=== PATIENT | male | born 1955 | race Caucasian/White ===

== ENCOUNTER 2022-12-25 08:13 | Day surgery (SDC) | payer OTHER ==
[2022-12-23 14:33] LABS: Absolute Lymphocytes (CBC) 1.5 K/uL (0.7-4.9); Hematocrit 44.8 % (39.6-49.0); Lymphocytes % 22.6 % (15.3-44.8); MCV 90.6 fL (80-100); MPV 7.3 fL (7.6-11.3); Platelets 305 thou/uL (152-406); RBC Red Blood Cell Count 4.94 M/uL (4.33-5.43)
[2022-12-23 14:44] LABS: Protime INR 0.9
[2022-12-23 14:52] LABS: Potassium 4.6 mEq/L (3.5-5.1)
[2022-12-25] MEDS ORDERED: NA CHLORIDE 0.9% 1,000 ML ONE (08:31)
[2022-12-25] MEDS ORDERED: propofoL 200 MG/20 ML VIAL IV ONE (09:01)
[2022-12-25] MEDS: CEFAZOLIN SODIUM 2 GM/VIAL ONE ×2 (09:15→10:10)
[2022-12-25] MEDS: BUPIVACAINE 0.25% PF 30 ML VIAL ONE ×2 (09:16→10:21)
[2022-12-25] MEDS ORDERED: dexAMETHasone 4 MG/ML VIAL ONE (10:27)
[2022-12-25] MEDS ORDERED: ONDANSETRON 4 MG/2 ML VIAL ONE (10:27)
[2022-12-25] MEDS ORDERED: FENTANYL CITR 100 MCG/2 ML ONE (10:36)
[2022-12-25] MEDS ORDERED: GLYCOPYRROLATE 0.2 MG/ML SYR ONE (10:37)
--- NOTE | 2022-12-25 10:47 | P.OP ---
Preoperative diagnosis: Umbilical Hernia Postoperative diagnosis: Umbilical Hernia Primary procedure: Laparoscopic Umbilical Hernia Repair with mesh Anesthesia: GETA + Local Estimated blood loss: <2cc Specimen: None Findings: ~2cm umbilical hernia Complications: None Implants: Bard Ventralite ST mesh 11.4cm Round, Sorbafix x 45 tacks Transferred to: Recovery Room Condition: Good
[2022-12-25] MEDS: HYDROMORPHONE HCL 1 MG/ML INJ ONE ×4 (10:57→11:23)
[2022-12-25] MEDS: FENTANYL CITR 100 MCG/2 ML ONE ×4 (11:29→11:50)
--- NOTE | 2022-12-25 12:01 | OP ---
Date of Procedure: 12/25/2022 Surgeon: Jakob Ospina MD, Preoperative Diagnosis: Umbilical hernia. Postoperative Diagnosis: Umbilical hernia. Procedure Performed: A laparoscopic umbilical hernia repair with mesh. Anesthesia: General endotracheal plus local with 0.25% Marcaine . Specimen: None. Findings: Approximately 2 cm umbilical hernia reducible. Complications: None. Implants: Bard Ventralight ST mesh with Echo Positioning System, 11.4 cm Bard mesh utilized round or ientation, SorbaFix absorbable fixation tacks, x45 tacks. Disposition: The patient was transferred to the recovery room in good condition. Procedure In Detail: After informed consent was obtained, patient was brought to the operating room, prepped and draped in the usual sterile fashion. After adequate anesthesia was achieved, an area of the left upper quadrant was anesthetized with 0.25% Marcaine, sharply incised. A 5 mm 0-degree opti teressa trocar was introduced in the abdomen without any evidence of complication. Insufflation was take n to 15 mmHg at this time. There was no injury to vital structure upon entry into the abdomen. Jose Francisco tional trocar was placed in the left mid abdomen. This was similarly anesthetized, sharply incised. A 12 mm trocar was placed under direct vision without evidence of complication. At this point, the LigaSure device was used to reduce preperitoneal adipose tissue from the umbilical hernia and swept b ack all preperitoneal adipose tissue to allow an adequate landing zone for the mesh to be in good jonel osition to the abdominal wall. After this was performed, no additional was required. At this point, I brought in an Endo Stitch with 0 V-Loc suture and closed the hernia defect imbricating the hernia sac in a running orientation with good approximation tissues. At this point, I brought in and deployed the 11.[address] mesh with Echo Positioning System in the supraumbilical position down to subcutaneous tissues. It was anesthetized and then the mesh after being properly p ositioned, was secured to the anterior abdominal wall using SorbaFix absorbable fixation tacks. The deployment system was found to be intact on the back table after being removed and I placed a double crown orientation of a total of 45 tacks to the anterior abdominal wall of SorbaFix absorbable fixati on tacks. After this was completed, the mesh was in good apposition to the abdominal wall without an y hemostatic measures required. I then closed the 12 mm trocar site using a Calixto-Whit suture p asser with 0 Vicryl in and interrupted fashion with good approximation of tissues. The abdomen was t hen desufflated under direct vision without evidence of complication. The remaining trocars were rem boom. All skin incisions were then copiously irrigated and closed with a 4-0 Monocryl in a running f ashion. Dermabond was placed over top. The patient tolerated the procedure well without evidence of complication and was transferred to PACU in good condition. All counts were correct at the end of t he case. SHAHEED/MARISEL Voice ID: [id number] Report ID: [id number]
[2022-12-25 12:46] VITALS: BP 129/85; TEMP 98.4; O2SAT 92
[2022-12-25] MEDS ORDERED: HYDROCODONE/APAP 10/325 TAB ONE (12:47)
--- NOTE | 2022-12-26 14:20 | EKG ---
Test Date: 2022-12-23 Test Time: 15:19:57 [employer]ite [employer] Machine: JOHN MEASUREMENT RESULTS: Intervals: Rate: 69 ME: 162 QRSD: 76 QT: 396 QTc: 424 Bennett: P: 21 ME: 162 QRS: 48 T: 60 INTERPRETIVE STATEMENTS: Normal sinus rhythm Anteroseptal infarct, age undetermined Abnormal ECG No previous ECG available for comparison Electronically Signed On 12-26-22 14:10:18 [employer] by Nima Collins
== END 2022-12-25 12:57 | disposition home or self-care (01) ==
LOC: OR 08:13
PROVIDERS: ATTEND Surgery
PROC: 0WUF4JZ Supplement Abdominal Wall with Synthetic Substitute, Percutaneous Endoscopic Approach (ICD-10-PCS; principal; 2022-12-25 10:30)
DX: K42.9 Umbilical hernia without obstruction or gangrene (principal)
CPT/HCPCS: 93005; 85025; 80048; 36415; 85610; 82947 ×2; 85730; 49591; J2704; J1100; J3010 ×2; J1170 ×2; J2405; J7030

== ENCOUNTER 2022-12-26 02:39 | Emergency (ER) | payer OTHER ==
--- OUTSIDE RECORDS SUMMARY | 2022-12-26 02:44 | XMS REPORT | Continuity of Care Document ---
:1955 Author Organization [facility] t Address [address] [facility] [address] [place] [address] Care Team Providers Name Role Phone Braulio MOHAN, Jorden Payne Primary Care Physician DR ENMANUEL CULLEN Attending Clinician Unavailable MACK TROTTER Attending Clinician Unavailable DR ENMANUEL CULLEN Admitting Clinician Unavailable MACK TROTTER Admitting Clinician Unavailable Problems Condition Condition Condition Status Onset Resolution Last Treating Co mments Source Name Details Category Date Date Treatment Clinician Date DM2 DM2 Disease Recurre 2016-[address] [facility] (diabetes (diabetes nce 03-06 [facility] mellitus, mellitus, 00:00: Medi teressa type 2) type 2) 00 Center HTN HTN Disease Active 2016-[address] [facility] [address] (hypertens (hypertens -20 Kathie kes ion) ion) 00:00: Medical 00 Center Hyperlipid Hyperlipid Disease Active 2016-[address] [facility] 03[facility]06 [facility] STEMI (ST STEMI (ST Disease Recurre 2016-[address] elevation elevation nce 03-06 [facility] myocardial myocardial 00:00: Me dical infarction infarction 00 Ce nter ) ) Acute Acute Disease Recurre 2016-[address] [facility] coronary coronary nce 03-04 [facility] syndrome syndrome 00:00: Medica l 00 Center Allergies, Adverse Reactions, Alerts Allergy Allergy Status Severity Reaction(s) Onset Inactive Treating Comm ents Source Name Type Date Date Clinician NO KNOWN [facility] Family Member Diagnosis Comments Start Date Stop Date Source Natural brother [facility] Natural father CABG/Stent [facility] Natural mother COPD [facility] Natural sister Cancer [facility] Social History Social Habit Start Date Stop Date Quantity Comments Source Sexual orientation [facility] History of Social 2018-10-08 2018-10-[address] function 00:00:00 00:00:00 Hospital Alcohol intake 2018-04-13 2018-04-13 Current drinker [facility] 00:00:00 00:00:00 of alcohol Hospital (finding) Alcohol Comment 2018-04-06 2018-04-06 [facility] Tobacco use and 2018-04-06 2018-04-06 Former smokeless [facility] exposure 00:00:00 00:00:00 tobacco user Hospital History of tobacco 1999-04-06 Chews Tobacco [facility] use 00:00:00 Hospital Sex Assigned At [birth year] [facility] 00:00:00 [facility]:00 [facility] Smoking Status Start Date Stop Date Source Never smoked tobacco [facility] ospital Light tobacco smoker 2017-01-02 00:00:00 [facility] Medications Ordered Filled Start Stop Current Ordering Indication Dosage Frequency Signature Comments Components Source Medication Medication Date Date Medication? Clinician (SIG) Name Name metFORMIN Yes 1000mg Q.5D Take 1,000 [facility] (GLUCOPHAGE 2-[address] ) 1,000 mg 15:05: mouth 2 Hosp aditya tablet 49 (two) l times a day with meals. carvedilol Yes 6.25mg Q.5D Take 6.25 [facility] (COREG) 2-[address] 6.25 MG 15:05: mouth 2 Hospita tablet 49 (two) l times a day with meals. empaglifloz Yes 25mg QD Take 25 mg [facility] in 2-[address] (JARDIANCE) 15:05: daily. Hosp aditya 25 mg 49 l tablet lisinopril Yes 10mg QD Take 10 mg M [facility] (PRINIVIL,Z -[address] ESTRIL) 10 15:05: daily. Hospi ta mg tablet 49 l gabapentin Yes 300mg Q.[id number] Take 300 [facility] (NEURONTIN) 2-22 [id number] mg by s t 300 mg 15:05: 3D mouth 3 Hospita capsule 49 (three) l times a day. azelastine- 2019 Yes 1{spray Q.5D 1 spray by [facility] fluticasone 2-22 } Each Nare st (DYMISTA) 15:05: route 2 Hospi ta 137-50 49 (two) l mcg/spray times a spray,non-a day. erosol nitroglycer Yes .4mg Place 0.4 M [facility] in 2-[address] (NITROSTAT) 15:05: the tongue Hospita 0.4 MG SL 49 every 5 l tablet (five) minutes as needed for chest pain. aspirin Yes 81mg QD Take 81 mg Meth dana (ECOTRIN) 2-[address] 81 MG 15:05: daily. Hospita enteric 49 l coated tablet omega-3 Yes 1g Q.5D Take 1 g [facility] acid ethyl 2-[address] esters 15:05: (two) Hospita (LOVAZA) 1 49 times a l gram day. capsule calcium Yes 1{tbl} Q.5D Take 1 [facility] carbonate-v 2-[address] itamin D3 15:05: mouth 2 Hospi ta 500 mg-200 49 (two) l unit per times a tablet day with meals. cyanocobala Yes 250ug QD Take 250 M ethodi min 2-[address] (VITAMIN 15:05: mouth Hospita B-12) 250 49 daily. l MCG tablet metFORMIN 2016-02 Yes 1000mg Take 1,[address] (GLUCOPHAGE 1-21 mg by [facility] ) 1000 MG 07:27: mouth 2 Medic al tablet 54 (two) Center times daily with breakfast and dinner. pioglitazon 2016-02 Yes 30mg QD Take [address] e (ACTOS) -21 by mouth [facility] 30 MG 07:27: daily. Medical tablet 54 Center atorvastati 2016-02 Yes 20mg QD Take [address] n (LIPITOR) -21 by mouth Luke s 20 MG 07:27: daily. Medical tablet 54 Center ezetimibe 2016-02 Yes 10mg QD Take [address] (ZETIA) 10 -21 by mouth [facility] mg tablet 07:27: daily. Medica l 54 Center aspirin 81 2016-02 Yes 81mg QD Take [address] MG EC -21 by mouth [facility] tablet 07:27: daily. Medical 54 Center omega-3 2016-02 Yes 2g Q.5D Take [address] acid ethyl -21 by mouth 2 Yon es esters 07:27: (two) Medical (LOVAZA) 1 54 times Center gram daily. capsule calcium 2016-02 Yes 1{tbl} Q.5D Take [address] carbonate-v -21 tablet by Yon es itamin D2 07:27: mouth 2 Medic al 500 54 (two) Center mg(1,250mg) times -200 unit daily. tablet nitroglycer 2016-[address] in -20 tablet [facility] (NITROSTAT) 00:00: (0.4 mg Med ical 0.4 MG SL 00 total) Center tablet under the tongue every 5 (five) minutes as needed for Chest pain. Procedures This patient has no known procedures. Plan of Care Planned Activity Planned Date Details Comments Source Future Scheduled 2022-12-09 [facility] Test 14:46:05 malignant neoplasm of colon (procedure) [code = 162804351] Future Scheduled 2022-12-09 [facility] Test 14:46:05 malignant neoplasm of colon (procedure) [code = 622510482] Future Scheduled 2022-12-09 [facility] Test 14:46:05 malignant neoplasm of colon (procedure) [code = 680174576] Future Scheduled 2022-12-09 COVID-19 VACCINE (#1) [facility] Test 14:46:05 [code = COVID-19 VACCINE (#1)] Future Scheduled 2022-12-09 [facility] Test 14:46:05 malignant neoplasm of colon (procedure) [code = 415407521] Future Scheduled 2022-12-09 [facility] Test 14:46:05 malignant neoplasm of colon (procedure) [code = 686766286] Future Scheduled 2022-12-09 SHINGLES VACCINES (1 [facility] Test 14:46:05 of 2) [code = SHINGLES VACCINES (1 of 2)] Future Scheduled 2022-12-09 65+ P[facility]UMOCOCCAL [facility] Test 14:46:05 VACCINE (1 - PCV) [code = 65+ PNEUMOCOCCAL VACCINE (1 - PCV)] Future Scheduled 2022-12-09 INFLUENZA VACCINE (#1) [facility] Test 14:46:05 [code = INFLUENZA VACCINE (#1)] Encounters Start End Encounter Admission Attending Care Care Encounter Source Date/Time Date/Time Type Type Clinicians Facility Department ID 2018-07-15 2018-07-15 Outpatient C ALYSE [facility] [id number] [facility] 09:34:00 11:55:00 [facility] [place], operated by [facility] Results Test Description Test Time Test Comments Results Result Comments Source GLUCOMETER GLUCOSE- LAB USE ONLY 2018-07-15 09:51:00 Test Item Value Reference Range Interpretation Comme nts GLUCOMETER (test code = GMG) 119 mg/dL 70-100 H Meter ID: [id number]: [id number] KIM ELKINSEDO POCT-GLUCOSE [id number] 12:15:00 Test Item Value Reference Range Interpretation Comments POC-GLUCOSE METER 155 mg/dL 70-110 H TESTED AT [facility] [facility] ([facility] 1538) [id number] 06:37:00 Test Item Value Reference Range Interpretation Comments MAGNESIUM (BEAKER) (test code = 1.9 mg/dL 1.6-2.6 627) BASIC METABOLIC [id number] 06:37:00 Test Item Value Reference Range Interpretation Comments SODIUM (BEAKER) 137 meq/L 136-145 (test code = 381) POTASSIUM (BEAKER) 4.1 meq/L 3.5-5.1 (test code = 379) CHLORIDE (BEAKER) 106 meq/L 98-107 (test code = 382) CO2 (BEAKER) (test 23 meq/L 22-29 code = 355) BLOOD UREA NITROGEN 12 mg/dL 7-21 (BEAKER) (test code = 354) CREATININE (BEAKER) 0.80 mg/dL 0.57-1.25 (test code = 358) GLUCOSE RANDOM 146 mg/dL 70-105 H (BEAKER) (test code = 652) CALCIUM (BEAKER) 8.7 mg/dL 8.4-10.2 (test code = 697) EGFR (BEAKER) (test 98 mL/min/1.73 ESTIMA REINALDO GFR IS code = 1092) sq m NOT ACCURATE CREATININE CLEARANCE IN PREDICTING GLOMERULAR FILTRATION RATE . ESTIMATED GFR I S NOT APPLICABLE FOR DIALYSIS PATIEN TS. CBC (HEMOGRAM ONLY)2017-01-04 06:05:00 Test Item Value Reference Range Interpretation Comments WHITE BLOOD CELL COUNT (BEAKER) 7.1 K/ L 3.5-10.5 (test code = 775) RED BLOOD CELL COUNT (BEAKER) 4.75 M/ L 4.63-6.08 (test code = 761) HEMOGLOBIN (BEAKER) (test code = 14.7 GM/DL 13.7-17.5 410) HEMATOCRIT (BEAKER) (test code = 43.7 % 40.1-51.0 411) MEAN CORPUSCULAR VOLUME (BEAKER) 92.0 fL 79.0-92.2 (test code = 753) MEAN CORPUSCULAR HEMOGLOBIN 30.9 pg 25.7-32.2 (BEAKER) (test code = 751) MEAN CORPUSCULAR HEMOGLOBIN CONC 33.6 GM/DL 32.3-36.5 (BEAKER) (test code = 752) RED CELL DISTRIBUTION WIDTH 11.8 % 11.6-14.4 (BEAKER) (test code = 412) PLATELET COUNT (BEAKER) (test 222 K/CU MM 150-450 code = 756) MEAN PLATELET VOLUME (BEAKER) 9.1 fL 9.4-12.4 L (test code = 754) NUCLEATED RED BLOOD CELLS 0 /100 WBC 0-0 (BEAKER) (test code = 413) POCT-GLUCOSE [id number] 21:29:00 Test Item Value Reference Range Interpretation Comments POC-GLUCOSE METER 137 mg/dL 70-110 H TESTED AT [place] [address] ([facility]) (test code = AM[place]JIT [place] 1538) [address] POCT-GLUCOSE [id number] 17:54:00 Test Item Value Reference Range Interpretation Comments POC-GLUCOSE METER 247 mg/dL 70-110 H TESTED AT [facility] [address] ([facility]) (test code = [place] 1538) [id number] HEMOGLOBIN [id number] 16:56:00 Test Item Value Reference Range Interpretation Comments HEMOGLOBIN A1C (BEAKER) (test code = 6.9 % 4.3-6.1 H 368) POCT-GLUCOSE [id number] 11:22:00 Test Item Value Reference Range Interpretation Comments POC-GLUCOSE METER 117 mg/dL 70-110 H TESTED AT [facility] [address] (BEAKER) (test code = AM[place] 1538) [address] POCT-GLUCOSE [id number] 07:43:00 Test Item Value Reference Range Interpretation Comments POC-GLUCOSE METER 127 mg/dL 70-110 H TESTED AT [facility] [address] (BEAKER) (test code = AM[facility]IT [place] [facility] 1538) [address] BASIC METABOLIC [id number] 07:39:00 Test Item Value Reference Range Interpretation Comments SODIUM (BEAKER) 137 meq/L 136-145 (test code = 381) POTASSIUM (BEAKER) 3.9 meq/L 3.5-5.1 (test code = 379) CHLORIDE (BEAKER) 104 meq/L 98-107 (test code = 382) CO2 (BEAKER) (test 26 meq/L 22-29 code = 355) BLOOD UREA NITROGEN 11 mg/dL 7-21 (BEAKER) (test code = 354) CREATININE (BEAKER) 0.80 mg/dL 0.57-1.25 (test code = 358) GLUCOSE RANDOM 148 mg/dL 70-105 H (BEAKER) (test code = 652) CALCIUM (BEAKER) 8.8 mg/dL 8.4-10.2 (test code = 697) EGFR (BEAKER) (test mL/min/1.73 INSUFFIC IENT CLINICAL code = 1092) sq m DATA TO CALCULA TE ESTIMATED GFR. [id number] 07:34:00 Test Item Value Reference Range Interpretation Comments MAGNESIUM (BEAKER) (test code = 2.0 mg/dL 1.6-2.6 627) PROTHROMBIN [id number] 06:59:00 Test Item Value Reference Range Interpretation Comments PROTIME (BEAKER) (test code = 14.0 seconds 11.7-14.7 759) INR (BEAKER) (test code = 370) 1.1 <=5.9 RECOMMENDED COUMADIN/WARFARIN INR THERAPY RANGESSTANDARD DOSE: 2.0 - 3.0 Includes: PROPHYLAXIS for venous thrombosis, systemic embolization; TREATMENT for venous thrombosis and/or pulmonary embolus.HIGH RISK: Target INR is 2.5-3.5 for patients with mechanical heart valves.CBC (HEMOGRAM ONLY)2017-01-03 06:45:00 Test Item Value Reference Range Interpretation Comments WHITE BLOOD CELL COUNT (BEAKER) 6.1 K/ L 3.5-10.5 (test code = 775) RED BLOOD CELL COUNT (BEAKER) 4.17 M/ L 4.63-6.08 L (test code = 761) HEMOGLOBIN (BEAKER) (test code = 12.9 GM/DL 13.7-17.5 L 410) HEMATOCRIT (BEAKER) (test code = 38.7 % 40.1-51.0 L 411) MEAN CORPUSCULAR VOLUME (BEAKER) 92.8 fL 79.0-92.2 H (test code = 753) MEAN CORPUSCULAR HEMOGLOBIN 30.9 pg 25.7-32.2 (BEAKER) (test code = 751) MEAN CORPUSCULAR HEMOGLOBIN CONC 33.3 GM/DL 32.3-36.5 (BEAKER) (test code = 752) RED CELL DISTRIBUTION WIDTH 11.7 % 11.6-14.4 (BEAKER) (test code = 412) PLATELET COUNT (BEAKER) (test 205 K/CU MM 150-450 code = 756) MEAN PLATELET VOLUME (BEAKER) 9.0 fL 9.4-12.4 L (test code = 754) NUCLEATED RED BLOOD CELLS 0 /100 WBC 0-0 (BEAKER) (test code = 413) RAD, CHEST, 1 VIEW, NON [id number] 18:22:00Reason for exam:->chest pain FINAL REPORT Chest, 1 view Clinical history: chest pain Comparison: None Discussion: There is no pneumothorax, pulmonary edema or significant pleural effusion. There is left basilar subsegmental atelectasis without definite focal consolidation. The cardiac silhouette is magnified by portable technique with tortuous appearance of the thoracic aorta. The osseous structures demonstrate degenerative change. Signed: Artie Fallon Verified Date/Time: 01/02/2017 18:22:22 Reading Location: [facility] C0[facility] Ortho Consult Reading Room -GLUCOSE [id number] 18:00:00 Test Item Value Reference Range Interpretation Comments POC-GLUCOSE METER 116 mg/dL 70-110 H TESTED AT [facility] [address] ([facility]) (test code = AM[place] 1538) [address] LIPID [id number] 17:58:00 Test Item Value Reference Range Interpretation Comments TRIGLYCERIDES ([facility]) (test code = 87 mg/dL 540) CHOLESTEROL ([facility]) (test code = 119 mg/dL 631) HDL CHOLESTEROL ([facility]) (test code 44 mg/dL = 976) LDL CHOLESTEROL CALCULATED ([facility]) 58 mg/dL (test code = 633) Triglyceride Reference Range: Low Risk <150 Borderline 150-199 High Risk 200-499 Very High Risk >=500Cholesterol Reference Range: Low Risk <200 Borderline 200-239 High Risk >240HDL Cholesterol Reference Range: Low Risk >=60 High Risk <40LDL Cholesterol Reference Range: Optimal <100 Near Optimal 100-129 Borderline 130-159 High 160-189 Very High >=[id number] 17:36:00 Test Item Value Reference Range Interpretation Comments PARTIAL THROMBOPLASTIN TIME 90.7 seconds 22.5-36.0 H ([facility]) (test code = 760) 4 hours after the start of continuous infusion and 4 hours after any rate change PROTHROMBIN [id number] 16:08:00 Test Item Value Reference Range Interpretation Comments PROTIME ([facility]) (test code = 40.4 seconds 11.7-14.7 H 759) INR ([facility]) (test code = 370) 4.1 <=5.9 RECOMMENDED COUMADIN/WARFARIN INR THERAPY RANGESSTANDARD DOSE: 2.0 - 3.0 Includes: PROPHYLAXIS for venous thrombosis, systemic embolization; TREATMENT for venous thrombosis and/or pulmonary embolus.HIGH RISK: Target INR is 2.5-3.5 for patients with mechanical heart valves.CBC (HEMOGRAM ONLY)2017-01-02 15:58:00 Test Item Value Reference Range Interpretation Comments WHITE BLOOD CELL COUNT ([facility]) 9.1 K/ L 3.5-10.5 (test code = 775) RED BLOOD CELL COUNT (AKER) 4.58 M/ L 4.63-6.08 L (test code = 761) HEMOGLOBIN (BEAKER) (test code = 14.3 GM/DL 13.7-17.5 410) HEMATOCRIT (BEAKER) (test code = 42.0 % 40.1-51.0 411) MEAN CORPUSCULAR VOLUME (BEAKER) 91.7 fL 79.0-92.2 (test code = 753) MEAN CORPUSCULAR HEMOGLOBIN 31.2 pg 25.7-32.2 (BEAKER) (test code = 751) MEAN CORPUSCULAR HEMOGLOBIN CONC 34.0 GM/DL 32.3-36.5 (BEAKER) (test code = 752) RED CELL DISTRIBUTION WIDTH 11.6 % 11.6-14.4 (BEAKER) (test code = 412) PLATELET COUNT (BEAKER) (test 221 K/CU MM 150-450 code = 756) MEAN PLATELET VOLUME (BEAKER) 9.9 fL 9.4-12.4 (test code = 754) NUCLEATED RED BLOOD CELLS 0 /100 WBC 0-0 (BEAKER) (test code = 413) TROPONIN [id number] 15:52:00 Test Item Value Reference Range Interpretation Comments TROPONIN I (BEAKER) (test code = 397) > ng/mL 0.00-0.03 HH Troponin I (TnI) levels must be interpreted in the context of the presenting symptoms and the clinical findings. Elevated TnI levels indicate myocardial damage, but are not specific for ischemic heart disease. Elevated TnI levels are seen in patients with other cardiac conditions (including myocarditis and congestive heart failure), and slight TnI elevations occur in patients with other conditions, including sepsis, renal failure, acidosis, acute neurological disease, and persistent tachyarrhythmia.CREATINE KINASE (CK), TOTAL AND MB 2017-01-02 15:44:00 Test Item Value Reference Range Interpretation Comments CREATINE KINASE TOTAL (BEAKER) 4373 U/L 29-200 H (test code = 380) CREATINE KINASE-MB (BEAKER) (test 184.6 ng/mL 0.0-6.6 H code = 750) CREATINE KINASE-MB INDEX (BEAKER) 4.2 % (test code = 395) CK-MB Reference Range:<6.7 Normal6.7-10.0 Borderline>10.0 Abnormal COMPREHENSIVE METABOLIC [id number] 15:26:00 Test Item Value Reference Range Interpretation Comments TOTAL PROTEIN 6.6 gm/dL 6.0-8.3 (BEAKER) (test code = 770) ALBUMIN (BEAKER) 4.2 g/dL 3.5-5.0 (test code = 1145) ALKALINE PHOSPHATASE 66 U/L 40-150 (BEAKER) (test code = 346) BILIRUBIN TOTAL 0.8 mg/dL 0.2-1.2 (BEAKER) (test code = 377) SODIUM (BEAKER) 136 meq/L 136-145 (test code = 381) POTASSIUM (BEAKER) 4.2 meq/L 3.5-5.1 (test code = 379) CHLORIDE (BEAKER) 105 meq/L 98-107 (test code = 382) CO2 (BEAKER) (test 22 meq/L 22-29 code = 355) BLOOD UREA NITROGEN 15 mg/dL 7-21 (BEAKER) (test code = 354) CREATININE (BEAKER) 0.82 mg/dL 0.57-1.25 (test code = 358) GLUCOSE RANDOM 157 mg/dL 70-105 H (BEAKER) (test code = 652) CALCIUM (BEAKER) 9.1 mg/dL 8.4-10.2 (test code = 697) AST (SGOT) (BEAKER) 341 U/L 5-34 H (test code = 353) ALT (SGPT) (BEAKER) 78 U/L 6-55 H (test code = 347) EGFR (BEAKER) (test mL/min/1.73 INSUFFIC IENT code = 1092) sq m CLINICAL DATA T O CALCULATE ESTIM ATED GFR. B-TYPE NATRIURETIC FACTOR (BNP)2017-01-02 15:25:00 Test Item Value Reference Range Interpretation Comments B-TYPE NATRIURETIC PEPTIDE (BEAKER) 35 pg/mL 0-100 (test code = 700) [id number] 15:18:00 Test Item Value Reference Range Interpretation Comments MAGNESIUM (BEAKER) (test code = 1.7 mg/dL 1.6-2.6 627) [id number] 15:10:00 Test Item Value Reference Range Interpretation Comments PROTIME (BEAKER) (test code = 44.2 seconds 11.7-14.7 H 759) INR (BEAKER) (test code = 370) 4.6 <=5.9 PARTIAL THROMBOPLASTIN TIME 99.8 seconds 22.5-36.0 H (BEAKER) (test code = 760) RECOMMENDED COUMADIN/WARFARIN INR THERAPY RANGESSTANDARD DOSE: 2.0 - 3.0 Includes: PROPHYLAXIS for venous thrombosis, systemic embolization; TREATMENT for venous thrombosis and/or pulmonary embolus.HIGH RISK: Target INR is 2.5-3.5 for patients with mechanical heart valves.CBC W/PLT COUNT & AUTO [id number] 15:00:00 Test Item Value Reference Range Interpretation Comments WHITE BLOOD CELL COUNT (BEAKER) 10.0 K/ L 3.5-10.5 (test code = 775) RED BLOOD CELL COUNT (BEAKER) 4.55 M/ L 4.63-6.08 L (test code = 761) HEMOGLOBIN (BEAKER) (test code = 14.0 GM/DL 13.7-17.5 410) HEMATOCRIT (BEAKER) (test code = 41.0 % 40.1-51.0 411) MEAN CORPUSCULAR VOLUME (BEAKER) 90.1 fL 79.0-92.2 (test code = 753) MEAN CORPUSCULAR HEMOGLOBIN 30.8 pg 25.7-32.2 (BEAKER) (test code = 751) MEAN CORPUSCULAR HEMOGLOBIN CONC 34.1 GM/DL 32.3-36.5 (BEAKER) (test code = 752) RED CELL DISTRIBUTION WIDTH 11.6 % 11.6-14.4 (BEAKER) (test code = 412) PLATELET COUNT (BEAKER) (test 219 K/CU MM 150-450 code = 756) MEAN PLATELET VOLUME (BEAKER) 9.2 fL 9.4-12.4 L (test code = 754) NUCLEATED RED BLOOD CELLS 0 /100 WBC 0-0 (BEAKER) (test code = 413) NEUTROPHILS RELATIVE PERCENT 87 % (BEAKER) (test code = 429) LYMPHOCYTES RELATIVE PERCENT 9 % (BEAKER) (test code = 430) MONOCYTES RELATIVE PERCENT 4 % (BEAKER) (test code = 431) EOSINOPHILS RELATIVE PERCENT 0 % (BEAKER) (test code = 432) BASOPHILS RELATIVE PERCENT 0 % (BEAKER) (test code = 437) NEUTROPHILS ABSOLUTE COUNT 8.67 K/ L 1.78-5.38 H ([facility]) (test code = 670) LYMPHOCYTES ABSOLUTE COUNT 0.85 K/ L 1.32-3.57 L (AKER) (test code = 414) MONOCYTES ABSOLUTE COUNT (AKER) 0.38 K/ L 0.30-0.82 (test code = 415) EOSINOPHILS ABSOLUTE COUNT 0.03 K/ L 0.04-0.54 L (AKER) (test code = 416) BASOPHILS ABSOLUTE COUNT (AKER) 0.02 K/ L 0.01-0.08 (test code = 417) IMMATURE GRANULOCYTES-RELATIVE 0 % 0-1 PERCENT ([facility]) (test code = 2801) [id number] 13:46:00 Test Item Value Reference Range Interpretation Comments ACTIVATED CLOTTING TIME 422 sec TEST ED AT [facility] [address] ([facility]) (test code = [facility] [place] [facility]) [address]
[2022-12-26 04:25] LABS: Absolute Lymphocytes (CBC) 1.1 K/uL (0.7-4.9); Hematocrit 46.1 % (39.6-49.0); Lymphocytes % 10.7 % (15.3-44.8); MCV 91.6 fL (80-100); MPV 7.2 fL (7.6-11.3); Platelets 329 thou/uL (152-406); RBC Red Blood Cell Count 5.03 M/uL (4.33-5.43)
[2022-12-26] MEDS ORDERED: ONDANSETRON 4 MG/2 ML VIAL ONE (04:35)
[2022-12-26] MEDS ORDERED: NA CHLORIDE 0.9% 1,000 ML ONE (04:36)
[2022-12-26 04:42] LABS: Bilirubin Total 0.8 mg/dL (0.2-1.0); Potassium 4.1 mEq/L (3.5-5.1); Protein, Total 7.7 g/dL (6.4-8.2)
[2022-12-26] MEDS ORDERED: PANTOPRAZOLE 40 MG INJ ONE (05:42)
--- NOTE | 2022-12-26 07:01 | EDPHYS ---
Physician Documentation [facility] Name: Min Hernandez Age: 67 yrs Sex: Male : 1955 Arrival Date: 12/26/2022 Time: 02:39 Bed 13 Private MD: ED Physician Beryl Esteves Historical: - Allergies: 12/26 03:57 No Known Allergies; ha1 - PMHx: 03:57 Diabetes mellitus; Hypertensive disorder; Myocardial infarction; ha1 - Immunization history:: Adult Immunizations not up to date. - Social history:: Smoking status: Patient/guardian denies using tobacco, the patient reports quitting approximately 1 years ago. Vital Signs: 03:27 BP 169 / 85; Pulse 84; Resp 19 S; Temp 98(O); Pulse Ox 94% on R/A; Weight 100.7 kg; ha1 Height 6 ft. 0 in. ; 04:30 BP 145 / 77; Pulse 75; Resp 18 S; Pulse Ox 95% on R/A; ha1 05:30 BP 148 / 80; Pulse 81; Resp 17 S; Pulse Ox 96% on R/A; ha1 06:33 BP 141 / 78; Pulse 80; Resp 17 S; Pulse Ox 93% on R/A; ha1 07:18 BP 154 / 77; Pulse 84; Resp 16; Pulse Ox 100% on R/A; mb9 03:27 Body Mass Index 30.11 (100.70 kg, 182.88 cm) ha1 MDM: 03:45 Patient medically screened. ci 06:56 ED course: Discussed case with patient's surgeon Dr. Jakob Haq, hemoglobin 15, states ci that patient may have had a minor bleed but nothing significant. Okay to discharge with Protonix and Zofran.. 12/26 03:47 Order name: CBC with Diff; Complete Time: 05:02 ci 12/26 03:47 Order name: CMP; Complete Time: 05:02 ci 12/26 03:47 Order name: Lipase; Complete Time: 05:02 ci 12/26 05:03 Order name: CT Abd/Pelvis - IV Contrast Only ci 12/26 03:47 Order name: IV Saline Lock; Complete Time: 04:26 ci 12/26 03:47 Order name: Labs collected and sent; Complete Time: 04:26 ci 11/11 03:47 Order name: NPO; Complete Time: 04:04 ci Administered Medications: 04:26 Drug: NS 0.9% IV 1000 ml IV at 1 bolus Per protocol; 1000 mL bolus Route: IV; Rate: 1 ha1 bolus; Site: right antecubital; 06:55 Follow up: Response: No adverse reaction; IV Status: Completed infusion; IV Intake: ha1 1000ml 04:26 Drug: Ondansetron IVP 4 mg IVP once; over 2 minutes Route: IVP; Site: right antecubital;ha1 04:55 Follow up: Response: No adverse reaction; Nausea is decreased ha1 05:20 Drug: Pantoprazole IVP 40 mg IVP once Route: IVP; Site: right antecubital; ha1 06:00 Follow up: Response: No adverse reaction ha1 Disposition Summary: 12/26/22 07:01 Discharge Ordered Condition: Stable ci Diagnosis - Nausea with vomiting, unspecified ci - Other postprocedural complications and disorders of digestive system ci Followup: ci - With: Private Physician - When: 1 - 2 days - Reason: Recheck today's complaints, Re-evaluation by your physician Discharge Instructions: - Discharge Summary Sheet ci - Nausea and Vomiting, Adult ci Forms: - Medication Reconciliation Form ci - Thank You Letter ci - Antibiotic Education ci - Prescription Opioid Use ci - Patient Portal Instructions ci - Leadership Thank You Letter ci Prescriptions: - Protonix 40 mg Oral Tablet - take 1 tablet ORAL route once daily; 30 tablet; Refills: 0, Product Selection ci Permitted - Zofran 4 mg Oral Tablet - take 1 tablet ORAL route every 12 hours As needed; 20 tablet; Refills: 0, ci Product Selection Permitted Signatures: Dispatcher [employer] Pamela Pinon RN RN ha1 Beryl Esteves ci Corrections: (The following items were deleted from the chart) 03:59 03:57 PSHx: Stented artery; ha1 ha1
--- NOTE | 2022-12-26 07:01 | ER ---
Nurse's Notes [facility] Name: Min Hernandez Age: 67 yrs Sex: Male : 1955 Arrival Date: 12/26/2022 Time: 02:39 Bed 13 Private MD: Diagnosis: Nausea with vomiting, unspecified;Other postprocedural complications and disorders of digestive system Presentation: 12/26 03:27 Chief complaint: Patient states: I had a hernia surgery yesterday morning, everything ha1 was ok until 5 PM yesterday I started to vomit dark brown secretions. I have vomited multiple times and feel nausea. 03:27 Coronavirus screen: Vaccine status: Patient reports being unvaccinated. Ebola Screen: ha1 No symptoms or risks identified at this time. Initial Sepsis Screen: Does the patient meet any 2 criteria? No. Patient's initial sepsis screen is negative. Does the patient have a suspected source of infection? No. Patient's initial sepsis screen is negative. Risk Assessment: Do you want to hurt yourself or someone else? Patient reports no desire to harm self or others. Onset of symptoms was December 26, 2022. 03:27 Method Of Arrival: Wheelchair ha1 03:27 Acuity: JACQIU 3 ha1 Triage Assessment: 03:27 General: Appears uncomfortable, Behavior is calm, cooperative. Pain: Complains of pain ha1 in abdomen Pain does not radiate. Pain currently is 7 out of 10 on a pain scale. Quality of pain is described as crampy, pressure. Neuro: Level of Consciousness is awake, alert, obeys commands, Oriented to person, place, time, situation. Respiratory: Airway is patent Respiratory effort is even, unlabored, Respiratory pattern is regular, symmetrical. GI: Abdomen is round obese, Reports lower abdominal pain, nausea, vomiting, brown vomit. GI: Reports post hernial surgery. : No signs and/or symptoms were reported regarding the genitourinary system. Derm: Skin is moist, Skin is normal. Musculoskeletal: Circulation, motion, and sensation intact. Historical: - Allergies: 03:57 No Known Allergies; ha1 - PMHx: 03:57 Diabetes mellitus; Hypertensive disorder; Myocardial infarction; ha1 - Immunization history:: Adult Immunizations not up to date. - Social history:: Smoking status: Patient/guardian denies using tobacco, the patient reports quitting approximately 1 years ago. Screenin:01 [facility] ED Fall Risk Assessment (Adult) History of falling in the last 3 months, ha1 including since admission No falls in past 3 months (0 pts) Confusion or Disorientation No (0 pts) Intoxicated or Sedated No (0 pts) Impaired Gait Yes (1 pt) Mobility Assist Device Used No (0 pt) Altered Elimination No (0 pt) Score/Fall Risk Level 0 - 2 = Low Risk Oriented to surroundings, Maintained a safe environment, Educated pt \T\ family on fall prevention, incl call for assistance when getting out of bed, Hourly rounding (assess needs \T\ fall precautionary measures) done. Abuse screen: Denies threats or abuse. Denies injuries from another. Nutritional screening: No deficits noted. Tuberculosis screening: No symptoms or risk factors identified. Assessment: 03:27 Reassessment: see triage assessment. ha1 05:00 Reassessment: reports heart jenkins. notified in shift. ha1 05:00 Reassessment: Patient and/or family updated on plan of care and expected duration. Pain ha1 level reassessed. Respiratory: Airway is patent Respiratory effort is even, unlabored, Respiratory pattern is regular, symmetrical. 05:45 Reassessment: Patient and/or family updated on plan of care and expected duration. Pain ha1 level reassessed. Patient is alert, oriented x 3, equal unlabored respirations, skin warm/dry/pink. Patient states symptoms have improved. 06:33 Reassessment: Patient and/or family updated on plan of care and expected duration. Pain ha1 level reassessed. Patient is alert, oriented x 3, equal unlabored respirations, skin warm/dry/pink. Patient denies pain at this time. Patient states feeling better. Patient states symptoms have improved. Vital Signs: 03:27 BP 169 / 85; Pulse 84; Resp 19 S; Temp 98(O); Pulse Ox 94% on R/A; Weight 100.7 kg; ha1 Height 6 ft. 0 in. ; 04:30 BP 145 / 77; Pulse 75; Resp 18 S; Pulse Ox 95% on R/A; ha1 05:30 BP 148 / 80; Pulse 81; Resp 17 S; Pulse Ox 96% on R/A; ha1 06:33 BP 141 / 78; Pulse 80; Resp 17 S; Pulse Ox 93% on R/A; ha1 07:18 BP 154 / 77; Pulse 84; Resp 16; Pulse Ox 100% on R/A; mb9 03:27 Body Mass Index 30.11 (100.70 kg, 182.88 cm) ha1 ED Course: 02:42 Patient arrived in ED. gm2 03:27 Arm band placed on right wrist. ha1 03:27 Patient has correct armband on for positive identification. Placed in gown. Bed in low ha1 position. Call light in reach. Side rails up X2. Adult w/ patient. 03:45 Beryl Esteves is Attending Physician. ci 03:57 Triage completed. ha1 04:04 Pamela Lay, VIC is Primary Nurse. ha1 05:54 CT Abd/Pelvis - IV Contrast Only In Process Unspecified. EDMS 06:59 Report received from VIC Santiago. mb9 07:18 No provider procedures requiring assistance completed. IV discontinued, intact, ramon bleeding controlled, No redness/swelling at site. Pressure dressing applied. Administered Medications: 04:26 Drug: NS 0.9% IV 1000 ml IV at 1 bolus Per protocol; 1000 mL bolus Route: IV; Rate: 1 ha1 bolus; Site: right antecubital; 06:55 Follow up: Response: No adverse reaction; IV Status: Completed infusion; IV Intake: ha1 1000ml 04:26 Drug: Ondansetron IVP 4 mg IVP once; over 2 minutes Route: IVP; Site: right antecubital;ha1 04:55 Follow up: Response: No adverse reaction; Nausea is decreased ha1 05:20 Drug: Pantoprazole IVP 40 mg IVP once Route: IVP; Site: right antecubital; ha1 06:00 Follow up: Response: No adverse reaction ha1 Medication: 04:02 VIS not applicable for this client. ha1 Intake: 06:55 IV: 1000ml; Total: 1000ml. ha1 Outcome: 07:01 Discharge ordered by . ci 07:18 Discharged to home via wheelchair, with family, ramon 07:18 Condition: stable 07:18 Discharge instructions given to patient, family, Instructed on discharge instructions, follow up and referral plans. Demonstrated understanding of instructions, follow-up care, medications, Prescriptions given X 2, 07:18 Patient left the ED. mb9 Signatures: Dispatcher [employer] EDPamela German RN RN ha1 Di Guerrero RN RN mb9 Linn, Kim Morris 2 Corrections: (The following items were deleted from the chart) 03:59 03:57 PSHx: Stented artery; carter machado
[2022-12-26 07:23] VITALS: TEMP 98
[2022-12-26 07:30] VITALS: BP 154/77; O2SAT 100
--- NOTE | 2022-12-26 14:21 | RAD REPORT ---
EXAM DESCRIPTION: CT - Abdomen Pelvis W Contrast - 12/26/2022 6:34 am CLINICAL HISTORY: Possible hematemesis, vomiting, recent hernia sx COMPARISON: None. TECHNIQUE: CT ABDOMEN PELVIS WITH IV CONTRAST on 12/26/2022 5:03 AM ARCHITECTURAL JOB CAPTAIN This exam was performed according to our departmental dose-optimization program, which includes autom ated exposure control, adjustment of the mA and/or kV according to patient size and/or use of iterati ve reconstruction technique. FINDINGS: There is moderate bibasilar atelectasis and scarring. Abdomen: Liver is mildly fatty in attenuation. There is no biliary dilatation. Gallbladder is normal in appearance. Stomach is distended with fluid. The pancreas and spleen are normal in appearance. Adr enal glands are normal. There is a punctate midpole right renal calculus without hydronephrosis. Left kidney is unremarkable. Abdominal aorta is normal in course and caliber without aneurysm. There is no free air. There is no r etroperitoneal adenopathy. There is minimal air along the anterior abdominal wall. There is suggestio n of recent midline hernia repair. Pelvis: There is no bowel obstruction. Urinary bladder is unremarkable. There is no free fluid. Appen kayli is normal. Skeleton: There are no acute osseous findings. No suspicious bony lesions. IMPRESSION: Distended stomach. Otherwise expected postoperative appearance. Electronically signed by: Yovany Morfin MD 12/26/2022 06:11 AM ARCHITECTURAL JOB CAPTAIN Due to temporary technical issues with the PACS/Fluency reporting system, reports are being signed by the in house radiologists without review as a courtesy to insure prompt reporting. The interpreting radiologist is fully responsible for the content of the report.
== END 2022-12-26 07:18 | disposition home or self-care (01) ==
LOC: ER 02:39
DX: R11.2 Nausea with vomiting, unspecified (principal); K91.89 Other postprocedural complications and disorders of digestive system; E11.9 Type 2 diabetes mellitus without complications; I10 Essential (primary) hypertension
CPT/HCPCS: 96361; 85025; 36415; 83690; 80053; 74177; 96375; 96374; 99284; Q9967; C9113; J2405; J7030